=== PATIENT | male | born 1935 | race Caucasian/White ===

== ENCOUNTER 2020-09-25 18:59 | Emergency (ER) | payer OTHER ==
--- NOTE | 2020-09-25 19:50 | NUR ---
CALLED PATIENT BACK FOR TRIAGE ASSESSMENT WITH NO RESPONSE.
--- NOTE | 2020-09-25 20:00 | NUR ---
CALLED DEMAR BACK WITH NO RESPONSE.
--- NOTE | 2020-09-25 20:15 | NUR ---
CALLED PATIENT BACK WITH NO RESPONSE. [facility]
--- NOTE | 2020-09-25 20:15 | NUR ---
PATIENT LEFT WITHOUT BEING SEEN BY DR. HAINES. NO FURTHER CARE PROVIDED FOR PATIENT.
== END 2020-09-25 19:50 | disposition left against medical advice (07) ==
LOC: MED 18:59
DX: M79.10 Myalgia, unspecified site (principal); Z53.21 Procedure and treatment not carried out due to patient leaving prior to being seen by health care provider